=== PATIENT | female | born 1995 | race Caucasian/White ===

== ENCOUNTER 2016-07-02 20:13 | Emergency (ER) | payer OTHER ==
[2016-07-02 20:34] VITALS: RESP 16; TEMP 98.6; O2SAT 96
[2016-07-02] MEDS ORDERED: METAXALONE 800 MG TAB PO ONE (20:54)
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
[2016-07-02 21:12] VITALS: BP 135/92; PULSE 85
== END 2016-07-02 21:12 | disposition home or self-care (01) ==
DX: S39.012A Strain of muscle, fascia and tendon of lower back, initial encounter (principal); S16.1XXA Strain of muscle, fascia and tendon at neck level, initial encounter; V00.328A Other snow-ski accident, initial encounter; Y92.39 Other specified sports and athletic area as the place of occurrence of the external cause; Y93.23 Activity, snow (alpine) (downhill) skiing, snowboarding, sledding, tobogganing and snow tubing

== ENCOUNTER 2016-07-04 07:44 | Emergency (ER) | payer OTHER ==
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
[2016-07-04 10:19] VITALS: BP 119/79; PULSE 76; RESP 14; TEMP 98.4; O2SAT 96
== END 2016-07-04 10:19 | disposition home or self-care (01) ==
DX: R20.2 Paresthesia of skin (principal); S39.012D Strain of muscle, fascia and tendon of lower back, subsequent encounter; V00.328D Other snow-ski accident, subsequent encounter

== ENCOUNTER 2016-07-05 08:10 | Emergency (ER) | payer OTHER ==
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
[2016-07-05] MEDS ORDERED: LORazepam 2 MG/ML INJ IVP ONE (08:41)
[2016-07-05] MEDS ORDERED: NS 1,000 ML IV ONE (08:42)
[2016-07-05 09:00] LABS: % IMMATURE GRANULYOCYTES 0.3 % (0.0-1.1); ABSOLUTE IMMATURE GRANULOCYTES 0.02 10^3/uL (0.00-0.10); ADD DIFF? NO; ADD MORPH? NO; ADD SCAN? NO; ATYPICAL LYMPHOCYTE FLAG 0 (0-99); FRAGMENT RBC FLAG 0 (0-99); HEMATOCRIT 43.3 % (38.0-47.0); HEMOGLOBIN 15.1 g/dL (12.6-16.3); LEFT SHIFT FLG 0 (0-99); LIPEMIA HEMOLYSIS FLAG 90 (0-99); MEAN CELL HEMOGLOBIN 29.5 pg (27.9-34.1); MEAN CELL HEMOGLOBIN CONCENTR. 34.9 g/dL (32.4-36.7); MEAN CELL VOLUME 84.7 fL (81.5-99.8); MEAN PLATELET VOLUME 9.5 fL (8.7-11.7); PLATELET CLUMPS FLAG 0 (0-99); PLATELET COUNT 312 10^3/uL (150-400); RED BLOOD CELL COUNT 5.11 10^6/uL (4.18-5.33); RED CELL DISTRIBUTION WIDTH 12.8 % (11.5-15.2)
[2016-07-05 09:15] LABS: ALANINE AMINOTRANSFERASE 30 IU/L (9-52); ALBUMIN 4.7 g/dL (3.5-5.0); ALKALINE PHOSPHATASE 80 IU/L (38-126); ANION GAP 8 mEq/L (8-16); ASPARTATE AMINOTRANSFERASE 25 IU/L (14-46); BILIRUBIN,TOTAL 0.6 mg/dL (0.1-1.4); BILIRUBIN-CONJUGATED 0.5 mg/dL (0.0-0.5); BILIRUBIN-UNCONJUGATED 0.1 mg/dL (0.0-1.1); CALCIUM 9.7 mg/dL (8.5-10.4); CARBON DIOXIDE 25 mEq/l (22-31); CHLORIDE 106 mEq/L (97-110); CREATININE 0.7 mg/dL (0.6-1.0); GLOMERULAR FILTRATION RATE > 60; GLUCOSE 94 mg/dL (70-100); POTASSIUM 4.2 mEq/L (3.5-5.2); SODIUM 139 mEq/L (134-144); TOTAL PROTEIN 7.4 g/dL (6.3-8.2)
[2016-07-05 12:31] VITALS: BP 125/74; PULSE 92; RESP 16; TEMP 97.7; O2SAT 95
== END 2016-07-05 12:30 | disposition home or self-care (01) ==
DX: R20.2 Paresthesia of skin (principal); F41.9 Anxiety disorder, unspecified; T42.8X5A Adverse effect of antiparkinsonism drugs and other central muscle-tone depressants, initial encounter
CPT/HCPCS: 96374; J1200

== ENCOUNTER 2016-07-05 19:10 | Emergency (ER) | payer OTHER ==
[2016-07-05 19:26] VITALS: O2SAT 94
[2016-07-05] MEDS ORDERED: LORazepam 2 MG/ML INJ IVP ONE (20:01)
[2016-07-05 20:11] LABS: % IMMATURE GRANULYOCYTES 0.3 % (0.0-1.1); ABSOLUTE IMMATURE GRANULOCYTES 0.02 10^3/uL (0.00-0.10); ADD DIFF? NO; ADD MORPH? NO; ADD SCAN? NO; ATYPICAL LYMPHOCYTE FLAG 0 (0-99); FRAGMENT RBC FLAG 0 (0-99); HEMATOCRIT 40.4 % (38.0-47.0); HEMOGLOBIN 14.2 g/dL (12.6-16.3); LEFT SHIFT FLG 0 (0-99); LIPEMIA HEMOLYSIS FLAG 90 (0-99); MEAN CELL HEMOGLOBIN 29.2 pg (27.9-34.1); MEAN CELL HEMOGLOBIN CONCENTR. 35.1 g/dL (32.4-36.7); MEAN PLATELET VOLUME 9.3 fL (8.7-11.7); PLATELET CLUMPS FLAG 10 (0-99); PLATELET COUNT 287 10^3/uL (150-400); RED BLOOD CELL COUNT 4.87 10^6/uL (4.18-5.33)
[2016-07-05 20:27] LABS: ALANINE AMINOTRANSFERASE 28 IU/L (9-52); ALBUMIN 4.5 g/dL (3.5-5.0); ALKALINE PHOSPHATASE 75 IU/L (38-126); ANION GAP 11 mEq/L (8-16); ASPARTATE AMINOTRANSFERASE 29 IU/L (14-46); BILIRUBIN-CONJUGATED 0.2 mg/dL (0.0-0.5); BILIRUBIN-UNCONJUGATED 0.8 mg/dL (0.0-1.1); CALCIUM 9.4 mg/dL (8.5-10.4); CARBON DIOXIDE 24 mEq/l (22-31); CHLORIDE 104 mEq/L (97-110); CREATININE 0.8 mg/dL (0.6-1.0); GLOMERULAR FILTRATION RATE > 60; GLUCOSE 82 mg/dL (70-100); POTASSIUM 3.8 mEq/L (3.5-5.2); SODIUM 139 mEq/L (134-144); TOTAL PROTEIN 7.4 g/dL (6.3-8.2)
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
[2016-07-05] MEDS ORDERED: IOPAMIDOL (ISOVUE-370) 150 ML BTL IV ONE (21:01)
[2016-07-05] MEDS ORDERED: LORAZEPAM 1 MG PREPACK#4 BTL TAKEHOME ONE ×2 (22:17→22:18)
[2016-07-05 22:22] VITALS: BP 120/79; PULSE 70; RESP 14; TEMP 98.4
== END 2016-07-05 22:22 | disposition home or self-care (01) ==
DX: R11.2 Nausea with vomiting, unspecified (principal); R25.3 Fasciculation
CPT/HCPCS: 96374; Q9967

== ENCOUNTER 2016-07-07 14:41 | Inpatient (IN) | payer OTHER ==
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
[2016-07-07] MEDS ORDERED: LORazepam 2 MG/ML INJ ONE (15:14)
[2016-07-07 15:18] LABS: HEMATOCRIT 41.3 % (38.0-47.0); HEMOGLOBIN 14.2 g/dL (12.6-16.3); MEAN CELL HEMOGLOBIN 29.3 pg (27.9-34.1); MEAN CELL HEMOGLOBIN CONCENTR. 34.4 g/dL (32.4-36.7); MEAN CELL VOLUME 85.3 fL (81.5-99.8); RED BLOOD CELL COUNT 4.84 10^6/uL (4.18-5.33); RED CELL DISTRIBUTION WIDTH 12.7 % (11.5-15.2)
[2016-07-07] MEDS ORDERED: LORazepam 2 MG/ML INJ IVP ONE (15:21)
[2016-07-07 15:32] LABS: ANION GAP 9 mEq/L (8-16); CARBON DIOXIDE 22 mEq/l (22-31); CHLORIDE 108 mEq/L (97-110); CREATININE 0.7 mg/dL (0.6-1.0); ETHANOL SERUM < 10 mg/dL (0-10); GLOMERULAR FILTRATION RATE > 60; GLUCOSE 81 mg/dL (70-100); POTASSIUM 4.5 mEq/L (3.5-5.2); SODIUM 139 mEq/L (134-144)
[2016-07-07] MEDS ORDERED: ONDANSETRON 4 MG/2 ML VIAL IVP ONE (15:47)
[2016-07-07] MEDS ORDERED: NS 1,000 ML IV ONE (15:59)
[2016-07-08] MEDS ORDERED: MAGNESIUM HYDROXIDE 30 ML UDCUP PO PRN (04:09)
[2016-07-08] MEDS ORDERED: NICOTINE POLACRILEX 2 MG GUM B PRN (04:09)
[2016-07-08] MEDS ORDERED: MAG HYDROX/AL HYDROX/SIMETH 30 ML UDCUP PO PRN (04:09)
[2016-07-08] MEDS ORDERED: ACETAMINOPHEN 325 MG TAB PO PRN (04:09)
[2016-07-08 04:15] VITALS: BP 122/75; PULSE 104; RESP 14; TEMP 98.1; O2SAT 95
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
== END 2016-07-08 13:48 | disposition home or self-care (01) | DRG 882 ==
LOC: BBEH 07-08 03:05
PROVIDERS: ADMIT Psychiatry & Neurology Psychiatry; ATTEND Psychiatry & Neurology Psychiatry
DX: F40.10 Social phobia, unspecified (principal); M62.838 Other muscle spasm; F07.81 Postconcussional syndrome
CPT/HCPCS: 80305; 96374; G0480; J2405

== ENCOUNTER → 2016-09-08 | Outpatient (CLI) | payer OTHER | LOC: FIMAGING 08:04 | PROVIDERS: ATTEND Internal Medicine Gastroenterology | DX: R10.13 Epigastric pain (principal) ==

== ENCOUNTER 2017-02-27 21:01 | Emergency (ER) | payer OTHER ==
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
[2017-02-27 21:40] VITALS: BP 116/67; PULSE 93; RESP 16; TEMP 98.6; O2SAT 97
== END 2017-02-27 21:38 | disposition home or self-care (01) ==
LOC: CED 21:01
DX: R07.81 Pleurodynia (principal); R05 Cough

== ENCOUNTER 2018-06-01 00:40 | Emergency (ER) | payer OTHER ==
--- NOTE | 2018-06-01 01:16 | EDPHY ---
General - History Smoking Status: Never smoked Time Seen by Provider: 06/01/18 01:05 Narrative: CLINICAL IMPRESSION: Facial abrasion, facial contusion, lip laceration ASSESSMENT/PLAN: Patient is a 23-year-old female with no significant medical history presents to the emergency department after sustaining a fall complaining of facial pain and lip laceration. Patient is afebrile, nontoxic-appearing, she is very tearful however in no acute distress. Her neurological exam is grossly normal with no focal deficit, she is clinically intoxicated. Physical exam reveals abrasion and contusion inferior to right orbit without associated bony tenderness to palpation or crepitus. Upper and lower lips with contusion, inner mucosa of lower lip with gaping 1 cm laceration. She has no evidence of dental trauma or mandibular tenderness. Patient denies any loss of consciousness. I have a low suspicion for intracranial hemorrhage, facial fracture or skull fracture. The patient will be observed until sober, a repeat examination will be performed at that time. There is no indication for imaging. This case was discussed with and the patient was seen by Dr. Reveles who will resume care of this patient at this time. DIFFERENTIAL DX: Facial fracture, skull fracture, orbital fracture, intracranial hemorrhage, dental fracture ED COURSE: 0115: Case discussed with Dr. Reveles, he will eval this patient now. CHIEF COMPLAINT: Fall, facial abrasion, lip contusion/laceration HPI: Patient is a 23-year-old female with no significant medical history who presents to the emergency department after sustaining a fall. Patient endorses that she drank several cocktails as well as smoked marijuana this morning. She was trying to walk home when she tripped on the concrete landing directly on her face. She does not believe that she had a loss of consciousness as she feels that she can recall the whole event. She did make it home, her roommate brought her to the emergency department for further evaluation after he saw her facial injuries. It is unclear exactly what time this occurred. Patient complains only of lip swelling and pain. She is not on aspirin or anticoagulation, she denies any focal neurologic deficit, she has had no vomiting or posttraumatic seizure, she has no bleeding disorder. She denies any headache, dizziness, eye pain, neck pain, back pain or extremity injury. Patient has no other complaints or concerns. PAST MEDICAL HISTORY: Denies Pertinent Past Surgical History: Denies Social History: Alcohol, marijuana, denies other illicit drug use or smoking cigarettes ROS: A full 10 point review of systems was negative except for those mentioned in HPI. PHYSICAL EXAM: General Appearance: Disheveled, tearful however not toxic-appearing HEENT: Normocephalic. Patient with swelling inferior to the right orbit with overlying abrasion and mild ecchymosis. The orbit is nontender, she has no bony tenderness to palpation along her face. No Weller sign or raccoon eyes. TMs are clear bilaterally with no hemotympanum. Nares are clear, no nasal bridge tenderness. Upper and lower lips with moderate edema, lower lip inner mucosa with approximately 1 cm gaping laceration. There is no evidence of dental trauma or avulsion fractures. No malocclusion. No mandibular tenderness to palpation. Eyes: PERRLA, EOMI intact without evidence of entrapment, discharge, pain or photosensitivity. Conjunctiva pink, no pallor or injection. Neck: Supple, nontender, no lymphadenopathy, no midline pain, FROM, no meningismus. Respiratory: There are no retractions, lungs are clear to auscultation. Cardiac: Regular rate and rhythm, no murmurs or gallops. Gastrointestinal: Abdomen is soft, nontender, bowel sounds normal, no masses/ hernia, no rigidity, guarding or focal peritoneal findings. Skin: Warm, dry, no rashes, no nodules on palpation. MEDICAL DECISION MAKING: Patient was seen independently. Secondary supervising physician at time of evaluation was Dr. Reveles, he also evaluated this patient. Diagnosis: Head injury, facial abrasion, lip laceration. New, requires workup Summary: See Assessment and Plan for summary of ED visit Clinical lab tests: Not applicable. Independent visualization of images, tracing, or specimens: No. Decision to obtain medical records or history from someone other than the patient: Yes, friend. Review / Summarize previous medical records: No. Discussed patient with another provider: Yes, Dr. Reveles Patient Progress: Stable, dispo pending. (Barry,Ester K) 0130 care assumed from PA. Plan will be for observation and reassessment when she is clinically sober. 0400 patient is awake alert. She is not clinically intoxicated. She denies headache. She has been up and ambulatory to the bathroom. No evidence of significant head injury at this time. She is medically cleared for discharge. ( Flex Reveles) - Objective Vital Signs: Initial Vital Signs Temperature (C) 36.7 C 06/01/18 00:45 Heart Rate 96 06/01/18 00:45 Respiratory Rate 18 06/01/18 00:45 Blood Pressure 130/98 H 06/01/18 00:45 O2 Sat (%) 96 06/01/18 00:45 O2 Delivery Mode Room Air Allergies/Adverse Reactions: kiwi Allergy (Verified 06/01/18 00:43) metaxalone [From Skelaxin] Allergy (Verified 06/01/18 00:43) Home Medications: Medication Instructions Recorded Albuterol 06/01/18 Departure - Departure Disposition: Home, Routine, Self-Care Clinical Impression: Contusion of face Qualifiers: Encounter type: initial encounter Qualified Code(s): S00.83XA - Contusion of other part of head, initial encounter Abrasion of face Qualifiers: Encounter type: initial encounter Qualified Code(s): S00.81XA - Abrasion of other part of head, initial encounter Lip laceration Qualifiers: Encounter type: initial encounter Qualified Code(s): S01.511A - Laceration without foreign body of lip, initial encounter Condition: Good Instructions: Laceration (ED), Head Injury (ED) Additional Instructions: DISCHARGE INSTRUCTIONS FROM YOUR DOCTOR Thank you for visiting our emergency department today. Please keep in mind that discharge from the emergency department does not mean that there is nothing wrong - it simply means that we have not identified an emergency condition that requires further evaluation or treatment in the hospital. You should always plan to follow up with primary care for re-evaluation of your condition in the next 2-3 days. Make sure you keep your wounds clean and dry, wash her face with soap and water twice a day. You may apply antibiotic ointment here abrasion. People present with illnesses and injuries in different ways, and it is always possible that we have missed something. You may always return for re-evaluation if symptoms worsen or if they are not improving or if you develop new/different symptoms. Again, thank you for choosing our emergency department. We hope that you feel better. Referrals: Ravi Mills, DO [Doctor of Osteopathy] - As per Instructions (Establish care if you do not have a primary care provider.)
[2018-06-01 03:57] VITALS: BP 132/82
== END 2018-06-01 04:07 | disposition home or self-care (01) ==
DX: S01.511A Laceration without foreign body of lip, initial encounter (principal); F10.920 Alcohol use, unspecified with intoxication, uncomplicated; W19.XXXA Unspecified fall, initial encounter; Y92.9 Unspecified place or not applicable